=== PATIENT | female | born 1970 | race Hispanic/Latino ===

== ENCOUNTER 2018-09-22 13:50 | Emergency (ER) | payer OTHER ==
--- NOTE | 2018-09-22 16:17 | RAD ---
Date of service: 09/22/2018 HISTORY: cough; COPD COMPARISON: No prior. TECHNIQUE: Chest PA and lateral views FINDINGS: LUNGS: No active pulmonary disease. PLEURA: No significant pleural effusion identified. No pneumothorax apparent. CARDIOVASCULAR: No aortic atherosclerotic calcification present. Normal cardiac size. No pulmonary vascular congestion. OSSEOUS STRUCTURES: No significant abnormalities. VISUALIZED UPPER ABDOMEN: Normal. OTHER FINDINGS: None. IMPRESSION: No acute cardiopulmonary disease appreciated.
--- NOTE | 2018-09-22 17:17 | C.PDOC ---
History Of Present Illness Patient is a 48 year old female, with a PMHx of COPD, who presents to the ED c/o cough for the past 2 weeks. Patient has tried OTC medications with no improvement. She denies any SOB, fever, chills, vomiting, or diarrhea. Chief Complaint (Nursing): Cough, Cold, Congestion History Per: Patient History/Exam Limitations: no limitations Onset/Duration Of Symptoms: Days (2 weeks) Current Symptoms Are (Timing): Still Present Associated Symptoms: Cough. denies: Fever, Chills, Vomiting, Diarrhea Recent travel outside of the [place]: No Additional History Per: Patient Past Medical History Reviewed: Historical Data, Nursing Documentation, Vital Signs Vital Signs: Last Vital Signs Temp 98.1 F 09/22/18 13:53 Pulse 123 H 09/22/18 13:53 Resp 20 09/22/18 13:53 BP 131/89 09/22/18 13:53 Pulse Ox 97 09/22/18 13:53 Primary Care Provider: Non [facility] Provider, - Medical History PMH: COPD Surgical History: No Surg Hx Family History: States: No Known Family Hx - Social History Hx Alcohol Use: Yes Hx Substance Use: No - Immunization History Hx Tetanus Toxoid Vaccination: No Hx Influenza Vaccination: No Hx Pneumococcal Vaccination: No Review Of Systems Constitutional: Negative for: Fever, Chills Respiratory: Positive for: Cough. Negative for: Shortness of Breath Gastrointestinal: Negative for: Nausea, Vomiting, Diarrhea Physical Exam - Physical Exam Appears: Non-toxic, No Acute Distress Skin: Warm, Dry Head: Atraumatic, Normacephalic Eye(s): bilateral: Normal Inspection, PERRL Nose: No Discharge Oral Mucosa: Moist Tongue: Normal Appearing Lips: Normal Appearing Throat: No Erythema, No Exudate Neck: Normal ROM, Supple Chest: Symmetrical, No Deformity Cardiovascular: Rhythm Regular Respiratory: Normal Breath Sounds, No Accessory Muscle Use Gastrointestinal/Abdominal: Soft, No Tenderness Extremity: Normal ROM Neurological/Psych: Oriented x3, Normal Speech, Normal Cognition, Normal Motor, Normal Sensation ED Course And Treatment O2 Sat by Pulse Oximetry: 97 (on RA) Pulse Ox Interpretation: Normal - Other Rad CXR X-Ray: Viewed By Me, Read By Radiologist Interpretation: Date of service: 09/22/2018. HISTORY: cough; COPD. COMPARISON: No prior. TECHNIQUE: Chest PA and lateral views. FINDINGS: LUNGS: No active pulmonary disease. PLEURA: No significant pleural effusion identified. No pneumothorax apparent. CARDIOVASCULAR: No aortic atherosclerotic calcification present. Normal cardiac size. No pulmonary vascular congestion. OSSEOUS STRUCTURES: No significant abnormalities. VISUALIZED UPPER ABDOMEN: Normal. OTHER FINDINGS: None. IMPRESSION: No acute cardiopulmonary disease appreciated. Medical Decision Making Medical Decision Making: Plan: CXR ordered and reviewed Tylenol 650mg PO Tessalon Perles 200mg PO Claritin 10mg PO Reassessment: patient resting comfortably and notes improvement Copy of Xray given patient advised to continue Tessalon Perles three times a day as needed for cough Claritin as needed for allergies once a day Tylenol as needed for pain Rest and Hydration Follow up with PMD in 1-2 days Return to the ED if symptoms worsen Patient verbalizes understanding and is in agreement with plan. Patient is stable for discharge. Disposition Counseled Patient/Family Regarding: Studies Performed, Diagnosis, Need For Followup, Rx Given - Disposition Referrals: [facility] [Outside] Disposition: HOME/ ROUTINE Disposition Time: 17:15 Condition: STABLE Additional Instructions: Copy of Xray given Continue Tessalon Perles three times a day as needed for cough Claritin as needed for allergies once a day Tylenol as needed for pain Rest and Hydration Follow up with PMD in 1-2 days Return to the ED if symptoms worsen Prescriptions: Acetaminophen [Tylenol] 325 mg PO Q6 PRN #30 capsule PRN Reason: Pain, Moderate (4-7) Benzonatate [Tessalon Perles] 100 mg PO TID #30 sgl Loratadine [Claritin] 10 mg PO DAILY PRN #30 tab PRN Reason: Allergy Symptoms Instructions: Seasonal Allergies (DC), Cough, Runny Nose, and the Common Cold (DC) Forms: [employer] ([place]an) - Clinical Impression Clinical Impression: Cough, Viral URI, Seasonal allergies - PA / INSTRUMENTATION SUPERVISOR / Resident Statement MD/DO has reviewed & agrees with the documentation as recorded. - Scribe Statement The provider has reviewed the documentation as recorded by the Isabel Cruz All medical record entries made by the Scribeugene were at my direction and personally dictated by me. I have reviewed the chart and agree that the record accurately reflects my personal performance of the history, physical exam, medical decision making, and the department course for this patient. I have also personally directed, reviewed, and agree with the discharge instructions and disposition.
[2018-09-22 17:31] VITALS: BP 120/82; PULSE 102; RESP 18; TEMP 98.2
[2018-09-22 19:08] VITALS: O2SAT 97
== END 2018-09-22 17:31 | disposition home or self-care (01) ==
LOC: C.ER 13:50
DX: J06.9 Acute upper respiratory infection, unspecified (principal); J30.2 Other seasonal allergic rhinitis; R05 Cough